=== PATIENT | male | born 1980 | race African-American/Black ===

== ENCOUNTER 2016-09-05 09:52 | Emergency (ER) ==
[2016-09-05] MEDS ORDERED: DECADRON IM ONE (10:33)
--- NOTE | 2016-09-05 10:35 | PROVIDER DOCUMENTATION ---
HPI-NT General - General Chief Complaint: Sore Throat Stated Complaint: SORE THROAT Time Seen by Provider: 09/05/16 10:31 Source: patient - History of Present Illness-[facility] General Nature of Presenting Problem: 35 y/o AAM c/o sore throat and feeling like his tonsils and uvula are enlarged in the back of his throat. Denies vocal changes, denies fevers, chills difficulty eating, swallowing or difficulty breathing. Denies pre-arrival treatment. Denies cough or congestion, but has had sinus pressure and mucous production. Denies neck pain or stiffness Review of Systems - Adult - REVIEW OF SYSTEMS - ADULT Constitutional: reports: no symptoms reported. denies: chills, fever, fatique Eyes: reports: no symptoms reported. denies: blurred vision, double vision, eye pain Ears, Nose, Mouth & Throat: reports: see HPI, sinus problem, throat pain. denies: ear discharge, ear pain, hearing loss, tinnitus, epistaxis, nose pain, loose teeth, mouth swelling, hoarseness, throat swelling Cardiovascular: reports: no symptoms reported. denies: chest pain, palpitations Respiratory: reports: no symptoms reported. denies: cough, shortness of breath Gastrointestinal: reports: no symptoms reported. denies: abdominal pain, diarrhea, nausea, vomiting Genitourinary: reports: no symptoms reported Musculoskeletal: reports: no symptoms reported. denies: bone pain, back pain, muscle aches Integumentary: reports: no symptoms reported. denies: rash Neurological: reports: no symptoms reported. denies: headache/migraines Psychiatric: reports: no symptoms reported Endocrine: reports: no symptoms reported Hematologic/Lymphatic: reports: no symptoms reported Allergic/Immunologic: reports: no symptoms reported All Other Systems: Reviewed and Negative Past History - Adult - PAST MEDICAL HISTORY-ADULT Review of Records: reports: Old Records Reviewed, Nursing Assessment Review, Medications Reviewed, Social history reviewed & non-contributory. Major Childhood Illnesses: reports: denies history Cardiovascular: reports: denies history Respiratory: reports: denies history Gastrointestinal: reports: denies history Genitourinary: reports: denies history Musculoskeletal: reports: denies history Neurological: reports: denies history Endocrine/Immune: reports: denies history Other Conditions: reports: denies history - FAMILY HISTORY Family History: reviewed, not pertinent Physical Exam- EENT - Physical Exam [facility] Initial Vital Signs Reviewed: Yes General Appearance: appears well, alert, no apparent distress Eye Exam: bilateral eye: normal inspection, PERRL, EOMI Ear Exam: bilateral ear: auricle normal, canal normal, TM normal Nasal Exam: normal inspection Throat Exam: normal mouth inspection, tonsillar swelling. negative: maxillary swelling, pharynx swelling, pharynx tenderness, uvula swelling, voice changes Neck: non-tender, full range of motion, supple, normal inspection, lymphadenopathy (anterior cervical adenopathy) Respiratory: chest non-tender, lungs clear, normal breath sounds, no pleuratic chest pain, no respiratory distress, no accessory muscle use. negative: respiratory distress, decreased breath sounds, accessory muscle use, crackles, rales, rhonchi, wheezing Cardiovascular: normal peripheral pulses, regular rate, rhythm, no edema, no gallop, no JVD, no murmur Lymphatic: cervical node tenderness Extremity: normal gait Integumentary: normal color, normal turgor, warm/dry Neurologic: grossly normal, no motor/sensory deficits Psych/Mental Status: AL, normal mood/affect, normal thought content, normal thought process, oriented x 3 Progress - PLAN OF CARE/RESULTS Progress/Plan/Lab Results: Vital Signs Temp Pulse Resp BP Pulse Ox 09/05/16 10:06 98.4 F 97 H 18 174/119 97 Amoxicillin [Amoxil] 500 mg PO BID #20 capsule 09/05/16 Prednisone [Deltasone] 20 mg PO DIRECTED #12 tablet 09/05/16 Orders Category Date Time Status Dexamethasone [Decadron] Med 09/05/16 10:33 Discontinued 4 mg IM NOW ONE Departure - Departure Time of Disposition Order: 10:34 DIAGNOSIS: Post-nasal drainage, Tonsillar enlargement Disposition: HOME 01 Certified Medical Emergency: Emergent Condition: Stable Additional Instructions: Return for new or worsening symptoms ED Follow Up Instructions: You have been treated by a care provider in the Emergency Department. These instructions are being provided to you so you can have an understanding of how to care for yourself upon discharge. Upon discharge from the Emergency Department, you are responsible for making arrangements for follow-up care by a physician of your choice. Take all prescribed medications as directed. Return to the Emergency Department immediately for any new or worsening symptoms. You may call the Physician Referral phone number at [phone] to obtain a list of Physicians who are taking new patients. Prescriptions: Amoxicillin [Amoxil] 500 mg PO BID #20 capsule Prednisone [Deltasone] 20 mg PO DIRECTED #12 tablet Referrals: None,PCP [Primary Care Provider] - Attestation - Physician/ Mid-level Attestation Patient care was provided by Mid-level provider (PROFESSOR OF PATHOLOGY/PA):: Yes Mid-level provider:: Charo Gutierrez Mid-level documentation review:: The Mid-level provider documentation, treatment plan and medical decision making was reviewed by the physician who agrees with all treatment and medical decision making by the MLP.
[2016-09-05 11:40] VITALS: BP 144/74
== END 2016-09-05 11:39 | disposition home or self-care (01) ==
LOC: P.ED 09:52
DX: J35.1 Hypertrophy of tonsils (principal); J34.89 Other specified disorders of nose and nasal sinuses; J02.9 Acute pharyngitis, unspecified; R59.0 Localized enlarged lymph nodes
CPT/HCPCS: 96372; J1100